=== PATIENT | male | born 1960 | race African-American/Black ===

== ENCOUNTER 2017-11-08 12:34 | Emergency (ER) | payer MEDICARE, OTHER ==
[2017-11-08] MEDS: SOD CHLORIDE 0.9% 1,000 ML IV (12:36)
[2017-11-08] MEDS: HALOPERIDOL 5 MG INJ IM (12:39)
[2017-11-08] MEDS: LORAZEPAM 2 MG INJ IM (12:39)
[2017-11-08 13:14] LABS: ADD MAN DIFF? NO
[2017-11-08 13:15] LABS: BASOPHIL # 0.1 10^3/ul (0.0-0.1); BASOPHILS % 1.4 % (0.0-2.0); EOSINOPHILS # 0.1 10^3/ul (0.0-0.5); EOSINOPHILS % 1.2 % (0.0-7.0); HEMATOCRIT 36.1 % (42.0-52.0); HEMOGLOBIN 11.7 g/dl (14.0-18.0); LYMPHOCYTES # 0.9 10^3/ul (0.8-2.9); LYMPHOCYTES % 16.6 % (15.0-51.0); MEAN CORPUSCULAR HEMOGLOBIN 30.2 pg (29.0-33.0); MEAN CORPUSCULAR HGB CONC 32.4 g/dl (32.0-37.0); MEAN PLATELET VOLUME 8.6 fl (7.4-10.4); MONOCYTE # 0.6 10^3/ul (0.3-0.9); MONOCYTES % 10.7 % (0.0-11.0); NEUTROPHIL # 3.9 10^3/ul (1.6-7.5); NEUTROPHILS % 69.6 % (39.0-77.0); PLATELET COUNT 398 10^3/UL (140-415); RED BLOOD COUNT 3.88 10^6/ul (4.70-6.10); RED CELL DISTRIBUTION WIDTH 14.6 % (11.5-14.5)
[2017-11-08 13:15] LABS: WHITE BLOOD COUNT 5.6 10^3/ul (4.8-10.8)
[2017-11-08 13:42] LABS: ALANINE AMINOTRANSFERASE 59 IU/L (13-69); ALBUMIN 4.6 g/dl (3.3-4.9); ALBUMIN/GLOBULIN RATIO 1.35; ALKALINE PHOSPHATASE 89 IU/L (42-121); ANION GAP 28 (8-16); ASPARTATE AMINO TRANSFERASE 63 IU/L (15-46); BILIRUBIN,INDIRECT 0.7 mg/dl (0-1.1); BILIRUBIN,TOTAL 0.7 mg/dl (0.2-1.3); BLOOD UREA NITROGEN 35 mg/dl (7-20); CALCIUM 9.5 mg/dl (8.4-10.2); CARBON DIOXIDE 16 mmol/L (21-31); CHLORIDE 99 mmol/L (97-110); CREATININE 2.07 mg/dl (0.61-1.24); GLUCOSE 64 mg/dl (70-220); LIPASE 42 U/L (23-300); POTASSIUM 4.6 mmol/L (3.5-5.1); SODIUM 138 mmol/L (135-144)
[2017-11-08 13:46] LABS: ETHANOL < 10.0 mg/dl; SALICYLATE < 1.0 mg/dl (5.0-30.0)
[2017-11-08 13:46] LABS: ACETAMINOPHEN < 10.0 ug/ml (10.0-30.0)
[2017-11-08 13:52] LABS: TROPONIN-I < 0.012 ng/ml (0.00-0.12)
== END 2017-11-09 01:00 | disposition home or self-care (01) ==
LOC: E/R 11-09 01:00
DX: F19.10 Other psychoactive substance abuse, uncomplicated (principal); E86.0 Dehydration
CPT/HCPCS: 36415; 80053; 80306; 83690; 84484; 85025; 93005; 96372; 99284-25